=== PATIENT | female | born 1930 | race Caucasian/White ===

== ENCOUNTER 2019-10-22 00:57 | Inpatient (IN) | payer MEDICARE, OTHER ==
[~2019-10-22] VITALS: Ht 149.9 cm; Wt 65.0 kg
[2019-10-22] MEDS ORDERED: VIT500TA8 PO (01:26)
[2019-10-22] MEDS ORDERED: IPRA3AMP24 NEB (01:26)
[2019-10-22] MEDS ORDERED: LEVO112T7 PO (01:26)
[2019-10-22] MEDS ORDERED: AMIN30LI28 PO (01:26)
[2019-10-22] MEDS ORDERED: FLUO20TA29 PO (01:26)
[2019-10-22] MEDS ORDERED: MOM30 PO (01:26)
[2019-10-22] MEDS ORDERED: ALEN70TA19 PO (01:26)
[2019-10-22] MEDS ORDERED: BISA10SU11 PR (01:26)
[2019-10-22] MEDS ORDERED: SIMV10TA97 PO (01:26)
[2019-10-22] MEDS ORDERED: GUAI600T50 PO (01:26)
[2019-10-22] MEDS ORDERED: FAMO20TA8 PO (01:26)
[2019-10-22] MEDS ORDERED: ACET-2247 PO (01:26)
[2019-10-22] MEDS ORDERED: 0.9% SODIUM CHLORIDE 10 ML SYRINGE IVP PRN ×2 (02:30→04:15)
[2019-10-22 02:37] LABS: BASOPHILS % (AUTO) 0.5 % (0.0-2.0); EOSINOPHILS % (AUTO) 0.1 % (1.0-6.0); HEMATOCRIT 30.6 % (36-46); HEMOGLOBIN 9.4 g/dL (12.0-16.0); LYMPHOCYTES # (AUTO) 0.2 K/uL (1.0-4.8); LYMPHOCYTES % (AUTO) 1.5 % (22.0-44.0); MEAN CORPUSCULAR HEMOGLOBIN 27.7 pg (26.0-34.0); MEAN CORPUSCULAR HGB CONC 30.8 G/dL (31.0-37.0); MEAN CORPUSCULAR VOLUME 90 fL (80-100); MONOCYTES # (AUTO) 0.8 K/uL (0.1-1.0); MONOCYTES % (AUTO) 5.6 % (2.0-9.0); NEUTROPHILS # (AUTO) 12.8 K/uL (1.8-7.7); PLATELET COUNT (AUTO) 343 K/uL (150-450); RED BLOOD CELL COUNT(AUTO) 3.41 MIL/uL (4.00-5.20); RED CELL DISTRIBUTION WIDTH 18.8 % (11.5-14.5)
[2019-10-22 02:39] LABS: NEUTROPHILS % (AUTO) 92.3 % (40.0-70.0)
[2019-10-22 02:49] LABS: CALCIUM, TOTAL 9.1 mg/dL (8.8-10.5); CREATININE 1.36 mg/dL (0.60-1.30); POTASSIUM 4.1 mmol/L (3.5-5.1)
[2019-10-22 02:51] LABS: INR 1.2 (0.9-1.1); PROTHROMBIN TIME 11.7 SEC (9.4-11.6)
[2019-10-22 02:56] LABS: ALBUMIN 2.1 g/dL (3.4-5.0); BILIRUBIN,TOTAL 1.1 mg/dL (0.1-1.0); TOTAL PROTEIN, SERUM 6.8 g/dL (6.4-8.2)
[2019-10-22] MEDS ORDERED: PIPERACILLIN/TAZO 3.375 GM/D5W 50 ML IV ONE (04:00)
[2019-10-22] MEDS ORDERED: SODIUM CHLORIDE 0.9% 500 ML IV ONE (04:00)
[2019-10-22] MEDS ORDERED: VANCOMYCIN HCL 1 GM/D5% WATER 200 ML IV ONE (04:00)
[2019-10-22] MEDS ORDERED: AZITHROMYCIN 500 MG/NS 250 ML IV ONE (04:00)
[2019-10-22] MEDS ORDERED: ACETAMINOPHEN 325 MG TABLET PO PRN ×2 (04:15→08:15)
[2019-10-22] MEDS ORDERED: ALBUTEROL SULFATE 5 MG/ML 20 ML NEB SOLN [BULK] NEB ONE ×3 (06:30→09:45)
[2019-10-22] MEDS ORDERED: IPRATROPIUM BROMIDE 0.5 MG/2.5 ML NEB SOLUTION NEB ONE ×2 (06:44→06:45)
[2019-10-22] MEDS ORDERED: MethylPREDNISolone SOD SUCC 125 MG/2 ML VIAL IVP ONE (06:45)
[2019-10-22] MEDS ORDERED: BISACODYL 10 MG RECTAL RECTAL SUPPOSITORY PR PRN (08:15)
[2019-10-22] MEDS ORDERED: DEXTROSE 5%-0.45% SODIUM CHL 1,000 ML IV ONE (08:15)
[2019-10-22] MEDS: DOCUSATE SODIUM 100 MG CAPSULE PO SCH ×2 (09:00→21:00)
[2019-10-22] MEDS: FAMOTIDINE 20 MG TABLET PO SCH (09:00)
[2019-10-22 10:22] LABS: SITE, BLOOD GAS RT RADIAL
[2019-10-22 10:23] LABS: ABG BASE EXCESS 0.4 mmol/L (-2.0-3.0); ABG HCO3 24.5 mmol/L (22.0-26.0); ABG PCO2 52 mmHg (35-45); ABG PH 7.324 (7.35-7.450); PO2, ARTERIAL BG 74.2 mmHg (71.0-79.0); SOURCE, BLOOD GAS ARTERIAL
[2019-10-22 10:24] LABS: ABG A-A DIFF O2 115.2 mmHg (10-20.0); ABG CARBOXYHEMOGLOBIN 0.3 % (0.0-1.5); ABG METHEMOGLOBIN 0.2 % (0.0-1.5); ABG OXYGEN CONTENT 12.8 mL/dL (15.0-23.0); ABG OXYGEN SATURATION 94.6 % (95.0-98.0); ABG OXYHEMOGLOBIN 94.1 % (94.0-100.0); ABG TOTAL HEMOGLOBIN 9.6 G/dL (12.0-18.0)
[2019-10-22 10:25] LABS: O2 DEVICE,BLOOD GAS HI-FLOW (ROOM AIR)
[2019-10-22 10:28] LABS: GLUCOSE,POINT OF CARE 173 MG/DL (70-110)
[2019-10-22] MEDS ORDERED: SODIUM CHLORIDE 0.9% 1,800 ML IV ONE (10:39)
[2019-10-22] MEDS: PIPERACILLIN/TAZO 3.375 GM/D5W 50 ML IV SCH ×3 (10:46→23:31)
[2019-10-22 11:08] LABS: BASOPHILS % (AUTO) 0.3 % (0.0-2.0); EOSINOPHILS % (AUTO) 0.1 % (1.0-6.0); HEMOGLOBIN 8.1 g/dL (12.0-16.0); LYMPHOCYTES # (AUTO) 0.1 K/uL (1.0-4.8); LYMPHOCYTES % (AUTO) 0.8 % (22.0-44.0); MEAN CORPUSCULAR HEMOGLOBIN 28.6 pg (26.0-34.0); MEAN CORPUSCULAR HGB CONC 31.3 G/dL (31.0-37.0); MEAN CORPUSCULAR VOLUME 91 fL (80-100); MONOCYTES # (AUTO) 0.3 K/uL (0.1-1.0); MONOCYTES % (AUTO) 2.6 % (2.0-9.0); NEUTROPHILS # (AUTO) 10.6 K/uL (1.8-7.7); PLATELET COUNT (AUTO) 261 K/uL (150-450); RED BLOOD CELL COUNT(AUTO) 2.84 MIL/uL (4.00-5.20); RED CELL DISTRIBUTION WIDTH 18.4 % (11.5-14.5)
[2019-10-22 11:10] LABS: NEUTROPHILS % (AUTO) 96.2 % (40.0-70.0)
[2019-10-22 11:26] LABS: CALCIUM, TOTAL 8.6 mg/dL (8.8-10.5); CREATININE 1.48 mg/dL (0.60-1.30); POTASSIUM 4.3 mmol/L (3.5-5.1)
[2019-10-22 11:30] LABS: ALBUMIN 1.9 g/dL (3.4-5.0); TOTAL PROTEIN, SERUM 6.7 g/dL (6.4-8.2)
[2019-10-22 11:59] LABS: APPEARANCE,URINE CLOUDY (CLEAR); GLUCOSE, URINE (UA) 100 mg/dL (NEGATIVE); KETONES,URINE NEGATIVE (NEGATIVE); LEUKOCYTE ESTERASE ,URINE SMALL (NEGATIVE); NITRATE,URINE NEGATIVE (NEGATIVE); OCCULT BLOOD,URINE LARGE (NEGATIVE); PH,URINE 5.5 (5.0-8.0); PROTEIN,URINE SEE CONFIRM (NEGATIVE)
[2019-10-22 12:01] LABS: BILIRUBIN,URINE PRELIM. POSITIVE (NEGATIVE)
[2019-10-22 12:02] LABS: RBC,URINE 51-100 /HPF (0-2); SULFOSALICYLIC ACID,URINE 3+ (Negative)
[2019-10-22 12:03] LABS: BACTERIA,URINE Many /HPF (None Seen)
[2019-10-22 12:10] VITALS: BP 151/73
[2019-10-22] MEDS ORDERED: ALBUTEROL SULFATE 2.5 MG/0.5 ML NEB SOLUTION NEB PRN (13:15)
[2019-10-22] MEDS ORDERED: BARIUM SULFATE 0.1% SUSPENSION 450 ML BOTTLE ONE (14:25)
[2019-10-22 16:00] VITALS: BP 119/65
[2019-10-22] MEDS: HEPARIN SODIUM,PORCINE 5,000 UNITS/ML VIAL SQ SCH (17:12)
[2019-10-22] MEDS: IPRATROPIUM BROMIDE 0.5 MG/2.5 ML NEB SOLUTION NEB PRN ×2 (19:39→22:45)
[2019-10-22] MEDS: ALBUTEROL SULFATE 2.5 MG/0.5 ML NEB SOLUTION NEB PRN ×2 (19:39→22:45)
[2019-10-22 20:00] VITALS: BP 129/49
[2019-10-23] VITALS: BP 134/61
[2019-10-23] MEDS: HEPARIN SODIUM,PORCINE 5,000 UNITS/ML VIAL SQ SCH ×3 (00:23→15:57)
[2019-10-23] MEDS: ALBUTEROL SULFATE 2.5 MG/0.5 ML NEB SOLUTION NEB PRN ×4 (03:29→23:05)
[2019-10-23] MEDS: IPRATROPIUM BROMIDE 0.5 MG/2.5 ML NEB SOLUTION NEB PRN ×4 (03:29→23:05)
[2019-10-23 04:00] VITALS: BP 133/57
[2019-10-23] MEDS: PIPERACILLIN/TAZO 3.375 GM/D5W 50 ML IV SCH (05:13)
[2019-10-23 05:41] LABS: CALCIUM, TOTAL 8.5 mg/dL (8.8-10.5); CREATININE 2.05 mg/dL (0.60-1.30); POTASSIUM 4.6 mmol/L (3.5-5.1)
[2019-10-23 08:00] VITALS: BP 118/47
[2019-10-23] MEDS ORDERED: VANCOMYCIN HCL 750 MG in DEXTROSE 5%-WATER 250 ML IV SCH (08:00)
[2019-10-23] MEDS: VANCOMYCIN HCL 500 MG in DEXTROSE 5%-WATER 100 ML IV SCH (08:33)
[2019-10-23] MEDS: FAMOTIDINE 20 MG TABLET PO SCH (09:00)
[2019-10-23] MEDS: DOCUSATE SODIUM 100 MG CAPSULE PO SCH ×2 (09:00→21:00)
[2019-10-23] MEDS ORDERED: DEXTROSE 5%-0.45% SODIUM CHL 1,000 ML IV ONE (09:15)
[2019-10-23] MEDS: PIPERACILLIN SODIUM/TAZOBACTAM 2.25 GM in DEXTROSE 5%-WATER 50 ML IV SCH ×3 (10:16→22:28)
[2019-10-23 12:00] VITALS: BP 113/61
[2019-10-23 16:00] VITALS: BP 139/62
[2019-10-23 20:00] VITALS: BP 124/62
[2019-10-24] VITALS: BP 144/84
[2019-10-24] MEDS: HEPARIN SODIUM,PORCINE 5,000 UNITS/ML VIAL SQ SCH ×3 (00:20→17:03)
[2019-10-24] MEDS: PIPERACILLIN SODIUM/TAZOBACTAM 2.25 GM in DEXTROSE 5%-WATER 50 ML IV SCH ×4 (03:54→21:43)
[2019-10-24 04:00] VITALS: BP 133/64
[2019-10-24 06:00] LABS: CALCIUM, TOTAL 8.8 mg/dL (8.8-10.5); CREATININE 2.63 mg/dL (0.60-1.30); POTASSIUM 4.3 mmol/L (3.5-5.1)
[2019-10-24 08:00] VITALS: BP 130/60
[2019-10-24] MEDS: IPRATROPIUM BROMIDE 0.5 MG/2.5 ML NEB SOLUTION NEB PRN ×3 (08:15→22:40)
[2019-10-24] MEDS: ALBUTEROL SULFATE 2.5 MG/0.5 ML NEB SOLUTION NEB PRN ×3 (08:15→22:40)
[2019-10-24] MEDS: DOCUSATE SODIUM 100 MG CAPSULE PO SCH ×2 (09:00→21:00)
[2019-10-24] MEDS: FAMOTIDINE 20 MG TABLET PO SCH (09:00)
[2019-10-24] MEDS: VANCOMYCIN HCL 500 MG in DEXTROSE 5%-WATER 100 ML IV SCH (09:04)
[2019-10-24] MEDS ORDERED: SODIUM CHLORIDE 0.9% 250 ML IV ONE ×2 (10:59→23:32)
[2019-10-24 12:00] VITALS: BP 149/79
[2019-10-24] MEDS ORDERED: VANCOMYCIN HCL 1 GM/D5% WATER 200 ML IV PRN (12:30)
[2019-10-24 16:00] VITALS: BP 110/55
[2019-10-24 20:00] VITALS: BP 111/60
[2019-10-25] VITALS (7 sets, daily range): BP systolic 120–142; BP diastolic 59–83
[2019-10-25] MEDS: HEPARIN SODIUM,PORCINE 5,000 UNITS/ML VIAL SQ SCH ×4 (00:11→23:49)
[2019-10-25] MEDS: PIPERACILLIN SODIUM/TAZOBACTAM 2.25 GM in DEXTROSE 5%-WATER 50 ML IV SCH ×4 (04:37→21:46)
[2019-10-25] MEDS: ALBUTEROL SULFATE 2.5 MG/0.5 ML NEB SOLUTION NEB PRN ×2 (08:29→13:04)
[2019-10-25] MEDS: IPRATROPIUM BROMIDE 0.5 MG/2.5 ML NEB SOLUTION NEB PRN ×2 (08:30→13:04)
[2019-10-25 08:56] LABS: CALCIUM, TOTAL 8.8 mg/dL (8.8-10.5); CREATININE 3.27 mg/dL (0.60-1.30); POTASSIUM 4.2 mmol/L (3.5-5.1)
[2019-10-25] MEDS: DOCUSATE SODIUM 100 MG CAPSULE PO SCH ×2 (09:00→21:00)
[2019-10-25] MEDS: FAMOTIDINE 20 MG TABLET PO SCH (09:00)
[2019-10-25] MEDS: ALBUMIN HUMAN 25%-12.5GM/50ML 50 ML IV SCH ×2 (10:55→23:22)
[2019-10-25] MEDS: FUROSEMIDE 40 MG/4 ML VIAL IVP SCH ×2 (11:58→22:49)
[2019-10-25] MEDS ORDERED: SODIUM CHLORIDE 0.9% 250 ML IV ONE (16:07)
[2019-10-26] MEDS: PIPERACILLIN SODIUM/TAZOBACTAM 2.25 GM in DEXTROSE 5%-WATER 50 ML IV SCH ×3 (04:32→18:01)
[2019-10-26 05:10] VITALS: BP 129/70
[2019-10-26 07:40] VITALS: BP 128/71
[2019-10-26] MEDS: FAMOTIDINE 20 MG TABLET PO SCH (08:41)
[2019-10-26] MEDS: HEPARIN SODIUM,PORCINE 5,000 UNITS/ML VIAL SQ SCH ×3 (08:41→23:43)
[2019-10-26] MEDS: DOCUSATE SODIUM 100 MG CAPSULE PO SCH ×2 (08:41→21:00)
[2019-10-26] MEDS: FUROSEMIDE 40 MG/4 ML VIAL IVP SCH ×2 (08:41→21:05)
[2019-10-26] MEDS ORDERED: FUROSEMIDE 40 MG/4 ML VIAL IVP SCH (09:00)
[2019-10-26 09:39] LABS: CALCIUM, TOTAL 9.1 mg/dL (8.8-10.5); CREATININE 3.82 mg/dL (0.60-1.30); POTASSIUM 4.1 mmol/L (3.5-5.1); VANCOMYCIN,RANDOM 21.4 mcg/mL (25.0-50.0)
[2019-10-26] MEDS: DEXTROSE 5%-0.45% SODIUM CHL 1,000 ML IV SCH (10:07)
[2019-10-26] MEDS: ALBUMIN HUMAN 25%-12.5GM/50ML 50 ML IV SCH ×2 (11:13→23:43)
[2019-10-26 11:33] VITALS: BP 139/69
[2019-10-26 16:15] VITALS: BP 129/92
[2019-10-26 19:53] VITALS: BP 122/58
[2019-10-26 23:35] VITALS: BP 129/52
[2019-10-27] MEDS: PIPERACILLIN SODIUM/TAZOBACTAM 2.25 GM in DEXTROSE 5%-WATER 50 ML IV SCH ×3 (02:22→18:18)
[2019-10-27 03:27] VITALS: BP 146/67
[2019-10-27] MEDS: ALBUTEROL SULFATE 2.5 MG/0.5 ML NEB SOLUTION NEB PRN (04:08)
[2019-10-27] MEDS: IPRATROPIUM BROMIDE 0.5 MG/2.5 ML NEB SOLUTION NEB PRN (04:08)
[2019-10-27] MEDS ORDERED: VANCOMYCIN HCL 1 GM/D5% WATER 200 ML IV ONE (05:00)
[2019-10-27 06:16] LABS: CALCIUM, TOTAL 9.3 mg/dL (8.8-10.5); CREATININE 4.18 mg/dL (0.60-1.30); POTASSIUM 3.8 mmol/L (3.5-5.1)
[2019-10-27 07:24] VITALS: BP 148/65
[2019-10-27] MEDS: DEXTROSE 5%-0.45% SODIUM CHL 1,000 ML IV SCH (07:51)
[2019-10-27] MEDS: HEPARIN SODIUM,PORCINE 5,000 UNITS/ML VIAL SQ SCH (07:52)
[2019-10-27] MEDS: FUROSEMIDE 40 MG/4 ML VIAL IVP SCH ×2 (07:52→20:10)
[2019-10-27] MEDS: DOCUSATE SODIUM 100 MG CAPSULE PO SCH ×2 (07:53→20:10)
[2019-10-27] MEDS: FAMOTIDINE 20 MG TABLET PO SCH (07:53)
[2019-10-27] MEDS: ALBUMIN HUMAN 25%-12.5GM/50ML 50 ML IV SCH ×2 (10:53→21:24)
[2019-10-27 11:28] VITALS: BP 130/64
[2019-10-27 15:54] VITALS: BP 136/73
[2019-10-27 19:48] VITALS: BP 131/66
[2019-10-27 23:40] VITALS: BP 110/53
[2019-10-28] MEDS: PIPERACILLIN SODIUM/TAZOBACTAM 2.25 GM in DEXTROSE 5%-WATER 50 ML IV SCH ×2 (01:41→09:53)
[2019-10-28 04:34] VITALS: BP 108/48
[2019-10-28 06:15] LABS: CREATININE 4.64 mg/dL (0.60-1.30); POTASSIUM 3.4 mmol/L (3.5-5.1)
[2019-10-28 07:56] VITALS: BP 101/58
[2019-10-28] MEDS: FAMOTIDINE 20 MG TABLET PO SCH (09:00)
[2019-10-28] MEDS: DOCUSATE SODIUM 100 MG CAPSULE PO SCH (09:00)
[2019-10-28] MEDS: ALBUMIN HUMAN 25%-12.5GM/50ML 50 ML IV SCH (09:52)
[2019-10-28] MEDS: FUROSEMIDE 40 MG/4 ML VIAL IVP SCH (09:52)
[2019-10-28 12:00] VITALS: BP 113/52
== END 2019-10-28 13:30 | DRG 871 ==
LOC: EMS 00:58 → ICU 12:10 → 4E 10-25 15:35
PROVIDERS: ADMIT Internal Medicine; ATTEND Internal Medicine
PROC: 05HY33Z Insertion of Infusion Device into Upper Vein, Percutaneous Approach (ICD-10-PCS; principal; 2019-10-23)
PROC: B54MZZA Ultrasonography of Right Upper Extremity Veins, Guidance (ICD-10-PCS; 2019-10-23)
DX: A41.9 Sepsis, unspecified organism (principal); E43 Unspecified severe protein-calorie malnutrition; I21.4 Non-ST elevation (NSTEMI) myocardial infarction; J96.01 Acute respiratory failure with hypoxia; J18.9 Pneumonia, unspecified organism; E87.2 Acidosis; J44.0 Chronic obstructive pulmonary disease with (acute) lower respiratory infection; C22.0 Liver cell carcinoma; R62.7 Adult failure to thrive; F03.90 Unspecified dementia, unspecified severity, without behavioral disturbance, psychotic disturbance, mood disturbance, and anxiety; L89.159 Pressure ulcer of sacral region, unspecified stage; E78.5 Hyperlipidemia, unspecified; N18.9 Chronic kidney disease, unspecified; D64.9 Anemia, unspecified; J44.9 Chronic obstructive pulmonary disease, unspecified; K21.9 Gastro-esophageal reflux disease without esophagitis; E78.00 Pure hypercholesterolemia, unspecified; E03.9 Hypothyroidism, unspecified; I12.9 Hypertensive chronic kidney disease with stage 1 through stage 4 chronic kidney disease, or unspecified chronic kidney disease; F32.9 Major depressive disorder, single episode, unspecified; Z66 Do not resuscitate; M81.0 Age-related osteoporosis without current pathological fracture; Z90.49 Acquired absence of other specified parts of digestive tract; Z79.899 Other long term (current) drug therapy; Z68.28 Body mass index [BMI] 28.0-28.9, adult
CPT/HCPCS: 36245; 36569; 36600; 71250; 72192; 74018; 74150; 76937; 82805; 83605; 87040; 87081; 87086; 87205; 92526; 92610; 93005; 93306; 94640; 94760; 94761; G0378; J0456; J1644; J1940; J2543; J2930; J3370; J7040; J7050; J7060; P9047